=== PATIENT | male | born 1995 | race American Indian/Alaskan Native ===

== ENCOUNTER 2017-11-17 10:05 | Emergency (ER) | payer BC, OTHER ==
[2017-11-17 10:33] VITALS: RESP 20; O2SAT 98
[2017-11-17 10:52] LABS: BASO % 0.5 % (0.0-2.0); EOS % 0.1 % (0.0-4.0); HEMOGLOBIN 16.6 g/dL (12.0-18.0); LYMPH # 1.2 K/uL (1.0-4.3); LYMPH % 18.6 % (20.0-40.0); MEAN CELL VOLUME 85.3 fl (80.0-94.0); MEAN CORPUSCULAR HEMOGLOBIN 29.1 pg (27.0-31.0); MEAN CORPUSCULAR HGB CONC 34.1 g/dL (33.0-37.0); MEAN PLATELET VOLUME 8.6 fl (7.2-11.7); MONO # 0.5 K/uL (0.0-0.8); MONO % 7.4 % (0.0-10.0); NEUT # 4.7 K/uL (1.8-7.0); NEUT % 73.4 % (50.0-75.0); NRBC % 0.1 % (0.0-0.0); RBC 5.72 Mil/uL (4.40-5.90); RED CELL DISTRIBUTION WIDTH 13.4 % (11.5-14.5); WHITE BLOOD COUNT 6.4 K/uL (4.8-10.8)
--- NOTE | 2017-11-17 11:14 | ED PDOC ---
HPI: Abdomen Time Seen by Provider: 11/17/17 10:14 Chief Complaint (Nursing): Abdominal Pain Chief Complaint (Provider): "stomach issues" for 6 months History Per: Patient History/Exam Limitations: no limitations Onset/Duration Of Symptoms: Days Outside of [place] travel?: No Current Symptoms Are (Timing): Better Additional Complaint(s): 22 yo male with no medical problems presents for evaluation of "stomach upset". PT states he will eat a small amount and have decreased appetite. Pt states sometimes at night he will wake up with episodes of vomiting. Pt states last night after dinner he felt like his stomach was upset and woke up vomiting. Pt denies abdominal pain now. Pt has not been seen in the last 6 months by a provider. PT states he came today because his parents insisted. Pt denies fever/ chills. Past Medical History Reviewed: Historical Data, Nursing Documentation, Vital Signs Vital Signs: Last Vital Signs Temp 97 F L 11/17/17 10:19 Pulse 64 11/17/17 10:19 Resp 20 11/17/17 10:19 BP 123/77 11/17/17 11:20 Pulse Ox 98 11/17/17 11:15 - Medical History PMH: No Chronic Diseases - Surgical History Surgical History: No Surg Hx - Family History Family History: States: No Known Family Hx - Living Arrangements Living Arrangements: With Family - Social History Current smoker - smoking cessation education provided: No - Immunization History Hx Tetanus Toxoid Vaccination: No Hx Influenza Vaccination: No Hx Pneumococcal Vaccination: No - Home Medications Home Medications: Ambulatory Orders Medication Instructions Recorded Famotidine [Pepcid] 20 mg PO BID #28 tab 11/17/17 Ondansetron ODT [Zofran ODT] 4 mg PO QID #20 odt 11/17/17 - Allergies Allergies/Adverse Reactions: Allergies Allergy/AdvReac Type Severity Reaction Status Date / Time No Known Allergies Allergy Verified 11/17/17 10:19 Review of Systems ROS Statement: Except As Marked, All Systems Reviewed And Found Negative Constitutional: Negative for: Fever, Chills Gastrointestinal: Positive for: Nausea, Vomiting. Negative for: Abdominal Pain , Diarrhea, Rectal Pain Genitourinary Male: Negative for: Dysuria, Frequency Physical Exam - Reviewed Nursing Documentation Reviewed: Yes Vital Signs Reviewed: Yes - Physical Exam Appears: Positive for: Well, Non-toxic, No Acute Distress Head Exam: Positive for: ATRAUMATIC, NORMAL INSPECTION, NORMOCEPHALIC Skin: Positive for: Normal Color, Warm, DRY Eye Exam: Positive for: Normal appearance ENT: Positive for: Normal ENT Inspection Neck: Positive for: Normal, Painless ROM Cardiovascular/Chest: Positive for: Regular Rate, Rhythm Respiratory: Positive for: Normal Breath Sounds. Negative for: Accessory Muscle Use, Respiratory Distress Gastrointestinal/Abdominal: Positive for: Normal Exam, Soft. Negative for: Tenderness, Guarding, Rebound Back: Positive for: Normal Inspection Extremity: Positive for: Normal ROM Neurologic/Psych: Positive for: Alert, Oriented - Laboratory Results Result Diagrams: 11/17/17 10:40 11/17/17 10:40 - ECG O2 Sat by Pulse Oximetry: 98 Pulse Ox Interpretation: Normal Medical Decision Making Medical Decision Making: fatty infiltrate in liver. discussed f/u with GI. [place] daily Copy of CT given to patient. Disposition - Clinical Impression Clinical Impression: Abdominal pain - Patient ED Disposition Is Patient to be Admitted: No Counseled Patient/Family Regarding: Diagnosis, Need For Followup, Rx Given - Disposition Referrals: Rodrigo Thacker MD [Medical Doctor] - Disposition: Routine/Home Disposition Time: 12:48 Condition: GOOD Prescriptions: Famotidine [Pepcid] 20 mg PO BID #28 tab Ondansetron ODT [Zofran ODT] 4 mg PO QID #20 odt Instructions: Nausea and Vomiting, Adult Forms: [facility] ([place]olan)
[2017-11-17 11:22] LABS: ALB/GLOB RATIO 1.4 (1.0-2.1); ALBUMIN 4.9 g/dL (3.5-5.0); ALT/SGPT 30 U/L (21-72); AST/SGOT 32 U/L (17-59); BLOOD UREA NITROGEN 13 mg/dl (9-20); CALCIUM 9.8 mg/dL (8.4-10.2); GFR AFRICAN-AMERICAN > 60; GFR NON-AFRICAN AMERICAN > 60; LIPASE 55 U/L (23-300)
[2017-11-17] MEDS ORDERED: Sodium Chloride 0.9% 50 ML IV ONE (11:28)
[2017-11-17] MEDS ORDERED: Iohexol 300 100 ML IJ ONE (11:28)
--- NOTE | 2017-11-17 12:41 | CT ---
Date of service: 11/17/2017 PROCEDURE: CT Abdomen and Pelvis with contrast HISTORY: abdominal pain, 6 months, associated with vomiting COMPARISON: No prior study available for comparison TECHNIQUE: Contiguous axial images of the abdomen and pelvis performed following intravenous injection of approximately 95 cc Omnipaque 300 move move reformats generated. Radiation dose: Total exam DLP = 567.1 mGy-cm. This CT exam was performed using one or more of the following dose reduction techniques: Automated exposure control, adjustment of the mA and/or kV according to patient size, and/or use of iterative reconstruction technique. . FINDINGS: LOWER THORAX: Heart size is within range of normal. No significant pericardial effusion. There is a tiny hiatal hernia. Lung bases clear without focal consolidation. LIVER: Liver is enlarged measuring nearly 20 cm in CC dimension. Mild to moderate diffuse fatty hepatic infiltration. No obvious hepatic mass collection or calcification. Portal and splenic veins are opacified. GALLBLADDER AND BILE DUCTS: Gallbladder is physiologically distended. No evidence of intraluminal gallbladder calculi. PANCREAS: Pancreas appears grossly unremarkable. SPLEEN: Spleen exhibits normal size and attenuation pattern. ADRENALS: No adrenal lesions. KIDNEYS AND URETERS: The kidneys demonstrate symmetric nephrograms. No evidence of nephrolithiasis or hydronephrosis. No obvious renal masses or collections. The VASCULATURE: Unremarkable. No aortic aneurysm. BOWEL: Evaluation of the bowel is limited due to the lack of oral contrast material. Stomach is incompletely distended which in part accounts for thick-walled appearance. Gastritis not excluded. Visualized loops of small bowel exhibit normal contour and caliber. No evidence of acute mechanical small bowel obstruction. Most of the large bowel is collapsed. No definitive evidence of abnormal mural wall thickening. APPENDIX: What is felt to represent dull normal but partially visualized appendix best seen on axial series image number [id number]. No periappendiceal inflammatory changes. Exit PERITONEUM: Unremarkable. No free fluid. No free air. LYMPH NODES: Unremarkable. No enlarged lymph nodes. BLADDER: Urinary bladder is incompletely distended which in part accounts thick-walled appearance. Possibility of muscular hypertrophy may contribute. Rule out UTI/ cystitis with urinalysis. REPRODUCTIVE: Unremarkable. BONES: No acute compression fractures. Small chronic appearing subchondral cyst or Schmorl's node posterior inferior L3 endplate. Vertebral bodies otherwise unremarkable. There is mild straightening of the normal lumbar lordosis which could be due to patient positioning gantry. OTHER FINDINGS: None. IMPRESSION: Mild wall thickening of the urinary bladder likely due to incomplete distention ; muscular hypertrophy may contribute. Rule out cystitis. Mild hepatomegaly with fatty hepatic infiltration
[2017-11-17 13:40] VITALS: BP 120/70; PULSE 74; TEMP 98
== END 2017-11-17 13:25 | disposition home or self-care (01) ==
LOC: H.ER 10:05
DX: R10.9 Unspecified abdominal pain (principal)
CPT/HCPCS: 74177; 80053; 83690; 85025; 87081; 87205; 99282; Q9967